=== PATIENT | male | born 1990 | race Asian ===

== ENCOUNTER 2016-12-30 07:15 | Emergency (ER) | payer BC ==
[~2016-12-30] VITALS: Ht 182.9 cm; Wt 125.4 kg
[~2016-12-30 07:15] MED LIST: IBUP-1050 PO; OXYC1TAB3 PO
[2016-12-30 07:17] VITALS: Ht 182.9 cm; Wt 125.4 kg
[2016-12-30] MEDS ORDERED: OXYCODONE HCL IR 5 MG TAB (IMMEDIATE RELEASE) PO STA (07:35)
[2016-12-30] MEDS ORDERED: GLC/500 PO (07:44)
[2016-12-30] MEDS ORDERED: XYLOCAINE 1%/SOD BICARB 20 ML VIAL INFIL ONE (07:45)
[2016-12-30] MEDS ORDERED: HYDR2.5C37 TOP (08:44)
[2016-12-30] MEDS ORDERED: CEPH500C2 PO (08:44)
[2016-12-30] MEDS ORDERED: OXYC1TAB3 PO (08:44)
--- NOTE | 2016-12-30 08:46 | EMERGENCY ROOM VISIT NOTE ---
History First contact with patient: 07:24 Chief Complaint: RECTAL PAIN Stated Complaint: ANUS HAS BUMP -VERY PAINFUL Nursing Triage Summary: rectal pain. I noticed I had a bump there last night. "I thought it was an ingrown hair." pain has increased. History of Present Illness The patient is a 26 year old male who presents to the Emergency Room with complaints of external lump by his anus which she noticed yesterday. The patient states that it is painful all the time. The patient states he does not strain for bowel movements. He does lift heavy at work. He denies any prior hemorrhoids. The patient states it was bleeding a small amount. The patient is diabetic. Review of Systems 6 system review was performed and was negative unless stated otherwise in history of present illness. Past Medical/Surgical History Diabetes, discectomy of the lumbar region. Tonsillectomy Social History Smoking Status: Current Every Day Smoker Alcohol Use: occasionally Drug Use: none Marital Status: single Occupation Status: unemployed Current/Historical Medications Scheduled Ibuprofen (Advil), 400 MG PO PRN Metformin Hcl (Glucophage), 500 MG PO BID Allergies Coded Allergies: No Known Allergies (Verified , 12/30/16) Physical Exam Vital Signs Date Time Temp Pulse Resp B/P Pulse Ox O2 Delivery O2 Flow Rate FiO2 12/30/16 07:17 36.7 71 18 142/99 99 Room Air Physical Exam GENERAL: 26-year-old white male appears uncomfortable secondary to pain. MENTAL Status: Alert and oriented 3. LUNGS: Clear auscultation without wheezes rales or rhonchi. CARDIAC: Regular rate and rhythm without murmur. Pulses is full and equal throughout. BACK: No CVA tenderness noted. ABDOMEN: Positive bowel sounds all 4 quadrants. Soft, nontender to palpation without organomegaly or masses. RECTAL: There is a 2 cm erythematous lump at the 6 o'clock position which does not extend into the rectum. There is a small amount of purulent drainage. Medical Decision & Procedures Medications Administered Medications (Trade) Dose Ordered Sig/Maciel Route Start Time Stop Time Status Last Admin Dose Admin Lidocaine HCl (Buffered Lidocaine 1% Inj) 20 ml NOW ONCE INFIL 12/30/16 07:45 12/30/16 07:46 DC 12/30/16 07:45 20 ML Oxycodone HCl (Roxicodone Immediate Rel Tab) 10 mg NOW STAT PO 12/30/16 07:35 12/30/16 07:36 DC 12/30/16 07:47 10 MG Procedure Verbal consent was obtained. INCISION DRAINAGE; The area was prepped with Betadine 3. The area was anesthetized with 1% buffered lidocaine. A small incision was made using 11 blade scalpel. A large amount of purulent drainage was expressed. Culture was obtained. Antibiotic ointment and a bandage was applied. Patient tolerated procedure well. ED Course The patient was evaluated. The patient was given OxyIR 10 mg by mouth for pain. See procedure note. The patient was informed that it was an abscess. He will be placed on antibiotics since he is diabetic. The patient verbalized understanding. The patient was discharged home in stable condition. Medical Decision Differential diagnosis include thrombosed hemorrhoid, perirectal abscess, Impression Primary Impression: Priscilla-rectal abscess Departure Information Dispostion Home / Self-Care Condition GOOD Prescriptions Oxycodone Immediate Rel Tab (ROXICODONE IR) 5 Mg Tab 1-2 TAB PO Q6 Y for Pain, #15 TAB Prov: Bisi Loredo PA-C 12/30/16 Cephalexin Monohydrate (KEFLEX) 500 Mg Cap 500 MG PO QID for 10 Days, #40 CAP Prov: Bisi Loredo PA-C 12/30/16 Hydrocortisone 2.5% (Rectal) (ANUSOL-HC 2.5%) 2.5 % Cre 1 APPLN TOP BID for 7 Days, #30 GM 1 Refill Prov: Bisi Loredo PA-C 12/30/16 Referrals Kymberly Nunes, C.R.N.P (PCP) Forms HOME CARE DOCUMENTATION FORM, IMPORTANT VISIT INFORMATION, WORK / SCHOOL INSTRUCTIONS Patient Instructions ED Abscess [place], [facility] Additional Instructions Apply warm moist compresses intermittently or sit in a sitz bath several times a day. Apply Anusol cream twice daily as directed. Take Keflex as prescribed. Ibuprofen 60 mg every 6 hours with food for pain. Take OxyIR as needed for more severe pain. Do not drive while taken OxyIR. Follow-up with your family doctor in 2 days for recheck.
[2016-12-30 08:56] VITALS: BP 179/86; PULSE 60; TEMP 36.7; O2SAT 99
--- NOTE | 2017-01-01 14:16 | Pharmacy Progress Note ---
ED Pharmacist Culture FollowUp Date of Service: Jan 01, 2017. Patient was sent home with a prescription for cephalexin, which should cover the E. coli growing from the patient's perirectal abscess culture. Coag negative Staph also isolated from same culture. Spoke piter Olivera ( microbiology) - discussed reporting sensitivities 2nd Staph's likelihood to form an abscess and ~50% oxacillin resistance rates per antibiogram. No sensitivity performed 2nd low counts at non-sterile site. Likely contaminant. Noted it could also have been reported as low counts of mixed normal michael. No intervention required at this time.
== END 2016-12-30 09:02 | disposition home or self-care (01) ==
LOC: C.EDB 07:16 → C.EDA 09:02
DX: K61.1 Rectal abscess (principal); E11.9 Type 2 diabetes mellitus without complications; F17.210 Nicotine dependence, cigarettes, uncomplicated

== ENCOUNTER 2017-08-19 08:32 | Emergency (ER) | payer BC ==
[~2017-08-19] VITALS: Ht 182.9 cm; Wt 128.5 kg
[~2017-08-19 08:32] MED LIST changes: +GLC/500 PO; +HYDR2.5C37 TOP; -OXYC1TAB3 PO
[2017-08-19 08:35] VITALS: TEMP 36.3; Ht 182.9 cm; Wt 128.5 kg
[2017-08-19] MEDS ORDERED: KETOROLAC TROMETHAMINE 30 MG/ML VIAL IV STA (08:57)
--- NOTE | 2017-08-19 10:43 | DIAGNOSTIC IMAGING REPORT ---
LUMBAR SPINE 5 VIEWS HISTORY: low back pain, hx disc protrusion/surgery L4/L5 COMPARISON: Lumbar spine 12/15/2015. FINDINGS: There is no fracture. No subluxation. Punctate stone within the upper pole the left kidney. The sacrum appears intact. The laminectomy at L4-L5. Mild to moderate to space narrowing at L4-L5 and L5-S1. Mild facet degenerative changes seen within the lower lumbar spine. IMPRESSION: 1. No fractures within the lumbar spine. 2. Postoperative changes and degenerative changes within the lower lumbar spine as described above. Electronically signed by: Kayode Brooks M.D. 08/19/2017 10:42 AM Dictated Date/Time: 08/19/2017 10:39 AM
[2017-08-19] MEDS ORDERED: CYCLOBENZAPRINE HCL 10 MG TAB PO STA (10:52)
[2017-08-19] MEDS ORDERED: OXYCODONE HCL IR 5 MG TAB (IMMEDIATE RELEASE) PO STA (10:52)
[2017-08-19] MEDS ORDERED: CYCL10TA6 PO (10:55)
[2017-08-19] MEDS ORDERED: OXYC1TAB3 PO (10:55)
--- NOTE | 2017-08-19 10:57 | EMERGENCY ROOM VISIT NOTE ---
ED Visit Note First contact with patient: 08:47 CHIEF COMPLAINT: Low back pain HISTORY OF PRESENT ILLNESS: This 26-year-old male patient presents to the emergency department ambulatory, complaining of pain in the low back which began last night at approximately 11 PM. 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 The patient states he was not lifting anything heavy, and the pain began after just standing from a sitting position. The patient does have a history of prior back surgeries in L4/L5 due to a disc herniation. The pain is now constant and worse with movement. The patient notes the pain as sharp and constant and a 9/ 10. The patient has taken no medications for relief of the pain. The patient denies any loss of control of their bowel or bladder functions. There has been no leg numbness or weakness, and no change in sensation. The patient states "there is no sciatic nerve pain". No nausea or vomiting or abdominal pain. No chest pain or shortness of breath. He had significant difficulty sleeping last night, as he was unable to get comfortable. He states he awoke several times due to the pain. Having difficulty walking without holding onto something to help with offsetting the weight. No dysuria or increased urinary frequency. REVIEW OF SYSTEMS: A review of systems was performed with positives and pertinent negatives listed in the history of present illness. All other systems were reviewed and are negative. ALLERGIES: None MEDICATIONS: Metformin PMH: Diabetes SOCIAL HISTORY: The patient lives locally alone. He denies drug, alcohol use. He admits to occasional tobacco use. PHYSICAL EXAM: VITALS: Vitals are noted on the nurse's note and reviewed by myself. Vital signs stable. GENERAL: This is a 26-year-old male, in no acute distress but does appear to be in pain, nondiaphoretic, well-developed well-nourished. SKIN: The skin was without rashes, erythema, edema, or bruising. Capillary refill less than 2 seconds. NECK: Supple without nuchal rigidity. No cervical spine tenderness. No paraspinous muscle tenderness. HEART: Regular rate and rhythm without murmurs gallops or rubs. LUNGS: Clear to auscultation bilaterally without wheezes, rales or rhonchi. ABDOMEN: Positive bowel sounds x 4. Normal tympanic percussion. Soft, nontender, without masses or organomegaly. Burnham sign negative. MUSCULOSKELETAL: No muscle atrophy, erythema, or edema noted of the back. There is moderate tenderness over the lumbar spinous processes in the area of L4 through L6. There is mild tenderness over the paraspinous muscles bilaterally. There is no tenderness over the thoracic spine or paraspinous muscles. There are moderate muscle spasms present. The patient is slow to move around with maximum tenderness with standing from a sitting position. Negative straight leg raise test. NEURO: Patient was alert and oriented to person place and time. Normal sensation to light and sharp touch. Deep tendon reflexes 2+ in the lower extremities. Dorsalis pedis pulse 2+ bilaterally. Strength 5/5 and equal in the bilateral lower extremities. RADIOLOGY: X-Ray L Spine: EMERGENCY DEPARTMENT COURSE: The patient was seen and evaluated as above. We did elect to perform X-Rays due to the patient's history of back injuries and tenderness of the spinous processes. These were negative for acute fracture or injury. The patient was given 30mg Toradol IV for discomfort and when I re- evaluated him, he was resting comfortably on the bed and sleeping. I did return to discuss x-ray findings and the patient states he is in pain again. He was given 5mg OxyIR and 10mg Flexeril. The patient feels comfortable to be discharged and will follow-up with his spine surgeon this week if possible. Discharge instructions reviewed and the patient was discharged home in good condition. I attest that I have personally reviewed the patient's current medication list. Patient was found to have normal blood pressure on screening and does not require follow-up. I did consult with PDMP and did not note any significant concerning findings. DIFFERENTIAL DIAGNOSIS: Strain, sprain, disc protrusion, herniation, cauda equina syndrome, abscess, malignancy, and others DIAGNOSIS: Lumbar strain Current/Historical Medications Scheduled Metformin Hcl (Glucophage), 500 MG PO BID Scheduled PRN Cyclobenzaprine Hcl (Flexeril), 10 MG PO TID PRN for Muscle Spasms Oxycodone Ir (Roxicodone Ir), 1-2 TAB PO Q4H PRN for Pain Allergies Coded Allergies: No Known Allergies (Verified , 08/19/17) Vital Signs Date Time Temp Pulse Resp B/P (MAP) Pulse Ox O2 Delivery O2 Flow Rate FiO2 08/19/17 11:05 51 20 135/88 98 Room Air 08/19/17 10:31 56 16 133/69 99 Room Air 08/19/17 08:35 36.3 62 18 172/109 99 Room Air Medications Administered Medications (Trade) Dose Ordered Sig/Maciel Route Start Time Stop Time Status Last Admin Dose Admin Ketorolac Tromethamine (Toradol Inj) 30 mg NOW STAT IV 08/19/17 08:57 08/19/17 08:59 DC 08/19/17 09:34 30 MG Oxycodone HCl (Roxicodone Immediate Rel Tab) 5 mg NOW STAT PO 08/19/17 10:52 08/19/17 10:54 DC 08/19/17 11:04 5 MG Cyclobenzaprine HCl (Flexeril Tab) 10 mg NOW STAT PO 08/19/17 10:52 08/19/17 10:54 DC 08/19/17 11:04 10 MG Departure Information Impression Primary Impression: Low back pain Dispostion Home / Self-Care Condition GOOD Prescriptions Cyclobenzaprine Hcl (FLEXERIL) 10 Mg Tab 10 MG PO TID Y for Muscle Spasms, #12 TAB Prov: Latonya Ashraf PA-C 08/19/17 Oxycodone Ir (Roxicodone Ir) 5 Mg Tab 1-2 TAB PO Q4H Y for Pain, #20 TAB For Initial Treatment Prov: Latonya Ashraf PA-C 08/19/17 Referrals Kymberly Nunes C.R.N.P (PCP) Joey Callahan M.D. Patient Instructions ED Low Back Pain Injury, ED Spasm Back No Trauma, [facility] Additional Instructions You have been treated in the Emergency Department for Back Pain. You have received pain medicine in the emergency department which impairs your ability to operate a vehicle. It is illegal for you to drive after receiving these medicines. You have been prescribed OxyIR to be used for pain control. This is a narcotic medication. You cannot drive or consume alcohol while on this medicine. This medicine should only be used for pain that cannot be controlled with over-the- counter pain medicines. You have been prescribed Flexeril (cyclobenzaprine) 1 tabs orally, three times per day. Do NOT exceed 30 mg (3 tabs) per day. Take your first dose at bedtime as it can make you drowsy. Always take all medications as prescribed. For pain control, you can use the following [id number] medicines (if >12 yo): Ibuprofen(Motrin, Advil) may be used for fever or pain. Use 600mg every six hours as needed. Take with food. Avoid using more than 2400mg in a 24 hour period. Do not use 2400mg per day for more than three consecutive days without physician direction. Prolonged inappropriate use can lead to stomach upset or ulcers. (AND/OR) Acetaminophen(Tylenol) may be used for fever or pain. Use 1000mg every six hours as needed. Avoid using more than 3000mg in a 24 hour period. If this is an acute injury, ice can be applied to the area of pain for the first 3 days to help decrease pain and inflammation. After the first 3 days, a heating pad can be used over the area for continued soothing relief. You should schedule a follow-up appointment in 2-3 days with your Primary Care Provider or orthopedic spine surgeon for further evaluation and treatment of your back pain. Return to the Emergency Department if your current symptoms worsen despite treatment course outlined above, or if you develop any of the following symptoms : intractable pain despite aforementioned treatment course, loss of control of your bowel or bladder, numbness or tingling in your groin, or development of a fever. Problem Qualifiers Primary Impression: Low back pain Chronicity: acute Back pain laterality: midline Sciatica presence: without sciatica Qualified Codes: M54.5 - Low back pain
[2017-08-19 11:05] VITALS: BP 135/88; PULSE 51; O2SAT 98
== END 2017-08-19 11:08 | disposition home or self-care (01) ==
LOC: C.EDB 08:34
DX: M54.5 Low back pain (principal); Z87.39 Personal history of other diseases of the musculoskeletal system and connective tissue; E11.9 Type 2 diabetes mellitus without complications